=== PATIENT | male | born 1990 | race Caucasian/White ===

== ENCOUNTER 2019-06-05 15:14 | Emergency (ER) | payer SELFPAY ==
[~2019-06-05] VITALS: Ht 180.3 cm; Wt 104.3 kg
[2019-06-05 15:19] VITALS: BP 121/49
--- NOTE | 2019-06-05 15:23 | NUR ---
PT IN CHAIR C IN [employer] CUSTODY
--- NOTE | 2019-06-05 15:34 | NUR ---
DR CHO AT BEDSIDE
[2019-06-05] MEDS ORDERED: IBUPROFEN 400 MG TAB PO ONE (15:40)
--- NOTE | 2019-06-05 15:42 | NUR ---
MOTRIN PO ADMIISTERED PO
--- NOTE | 2019-06-05 15:44 | NUR ---
PATIENT [facility] [employer]. PATIENT EXAMINED BY DR. CHO. PATIENT MEDICALLY CLEARED AND RELEASED IN CUSTODY IN STABLE CONDITION. ORIGINAL PRE-BOOK FORM GIVEN TO OFFICER DANIS.
[2019-06-05 15:45] VITALS: BP 121/49
== END 2019-06-05 15:45 ==
LOC: MED 15:14
DX: S46.912A Strain of unspecified muscle, fascia and tendon at shoulder and upper arm level, left arm, initial encounter (principal); S46.911A Strain of unspecified muscle, fascia and tendon at shoulder and upper arm level, right arm, initial encounter; S80.212A Abrasion, left knee, initial encounter; S80.211A Abrasion, right knee, initial encounter; Z02.89 Encounter for other administrative examinations; X58.XXXA Exposure to other specified factors, initial encounter; Y93.89 Activity, other specified; Y92.89 Other specified places as the place of occurrence of the external cause; Y99.8 Other external cause status
CPT/HCPCS: 99283